=== PATIENT | male | born 1990 | race Asian ===

== ENCOUNTER 2019-02-20 17:31 | Emergency (ER) | payer OTHER ==
[~2019-02-20] VITALS: Ht 172.7 cm; Wt 81.6 kg
[2019-02-20 17:56] VITALS: BP 124/79
== END 2019-02-20 22:25 | disposition home or self-care (01) ==
LOC: ER 17:31 → EDBD 17:31 → ER 22:25
DX: S62.111A Displaced fracture of triquetrum [cuneiform] bone, right wrist, initial encounter for closed fracture (principal); S62.112A Displaced fracture of triquetrum [cuneiform] bone, left wrist, initial encounter for closed fracture; S16.1XXA Strain of muscle, fascia and tendon at neck level, initial encounter; S09.8XXA Other specified injuries of head, initial encounter; W18.39XA Other fall on same level, initial encounter; Y93.89 Activity, other specified; Y92.89 Other specified places as the place of occurrence of the external cause; Y99.8 Other external cause status
CPT/HCPCS: 29125; 70450; 70486; 73030; 73090; 73110